=== PATIENT | female | born 1985 | race Caucasian/White ===

== ENCOUNTER 2017-07-16 22:06 | Emergency (ER) | payer OTHER ==
[2017-07-16 22:25] VITALS: BP 107/61; PULSE 92; RESP 18; TEMP 97.8; O2SAT 100
[2017-07-16] MEDS ORDERED: Morphine 4 MG/ML VIAL IVP STA (22:44)
[2017-07-16] MEDS ORDERED: Lactated Ringer's 1,000 ML IV STA (22:44)
[2017-07-16] MEDS ORDERED: Morphine 4 MG/ML VIAL ONE (22:57)
--- NOTE | 2017-07-16 23:52 | ED PDOC ---
HPI: Abdomen Time Seen by Provider: 07/16/17 22:32 Chief Complaint (Nursing): Abdominal Pain Chief Complaint (Provider): Pelvic Pain History Per: Patient History/Exam Limitations: no limitations Onset/Duration Of Symptoms: Hrs (x1) Current Symptoms Are (Timing): Still Present Additional Complaint(s): 32 y/o female with a pmhx of hypothyroidism, who presents to the ED complaining of severe pelvic pain x1 hour. Patient reports having a D&C 3 weeks ago for demise at 8 weeks. Patient says she had 2 weeks of bleeding following the procedure that ended with a bit of spotting. Reports mild LLQ pain x2 days that has since resolved. States that 1 hour prior to arrival at the ED she developed sharp severe midline pelvic pain. Denies discharge, bleeding, or urinary problems. Also denies diarrhea, constipation, or taking any medication for pain. Patient is with 3 terminations due to demise. All terminations were within the last 14 months. Reports she did not have this pain following her previous 2 D&Cs, nor did she have as much bleeding. Also reports previous 2 D&Cs were performed in [facility], but her most recent D&C was performed in [place] by Dr. Escoto. PMD: Dr. Escoto in [place] Past Medical History Reviewed: Historical Data, Nursing Documentation, Vital Signs Vital Signs: Last Vital Signs Temp 97.8 F 07/16/17 22:20 Pulse 92 H 07/16/17 22:20 Resp 18 07/16/17 22:20 BP 107/61 07/16/17 22:20 Pulse Ox 100 07/16/17 23:58 - Medical History PMH: Hypothyroidism - Surgical History Surgical History: Cholecystectomy, Hernia Repair (as child) Other surgeries: D&C x3 - Family History Family History: States: Unknown Family Hx - Social History Current smoker - smoking cessation education provided: No Alcohol: None Drugs: Denies - Allergies Allergies/Adverse Reactions: Allergies Allergy/AdvReac Type Severity Reaction Status Date / Time No Known Allergies Allergy Verified 07/16/17 22:19 Review of Systems Gastrointestinal: Positive for: Abdominal Pain (resolved). Negative for: Diarrhea, Constipation Genitourinary Female: Positive for: Vaginal Bleeding (resolved), Pelvic Pain. Negative for: Dysuria, Frequency, Incontinence, Hematuria, Vaginal Discharge Physical Exam - Reviewed Nursing Documentation Reviewed: Yes Vital Signs Reviewed: Yes - Physical Exam Gastrointestinal/Abdominal: Positive for: Tenderness (midline superpubic tenderness to palpation) - Laboratory Results Result Diagrams: 07/16/17 23:37 - ECG O2 Sat by Pulse Oximetry: 100 (RA) Pulse Ox Interpretation: Normal Medical Decision Making Medical Decision Making: Time: 23:37 Initial Impression: Pelvic pain s/p D&C. Differential diagnoses include, but are not limited to retained products of conception, endometritis, UTI or cystitis Initial Plan: --Beta-HCG --CMP --ED urine --ED urine dipstick --CBC --PTT/PT --Lactated Ringer's 1,000 mls/hr --Morphine 4mg IVP --IV Insertion --US Transvaginal --Reevaluation Time: 00:06 EXAM: US Pelvis, Transvaginal CLINICAL HISTORY: 32 years old, female; Pain; Pelvic pain; Prior surgery; Surgery date: <1 month; Surgery type: S/P d & c x 3 wks; Additional info: Pelvic pain post d c 3 weeks R/O retianed pocs TECHNIQUE: Real-time transvaginal pelvic ultrasound (complete) with image documentation. Transvaginal imaging was used for better evaluation of the endometrium and adnexa. COMPARISON: No relevant prior studies available. FINDINGS: Uterus/cervix: Uterus measures 7.4 x 4.1 x 5.6 cm in size. No myometrial mass. Endometrium: 1.3 cm in thickness, heterogeneous without significant vascularity. Right ovary: 2.2 x 1.4 x 2.1 cm in size. No mass. Normal flow. Left ovary: 3.4 x 2.0 x 2.9 cm in size. 1.5 x 0.8 x 1.3 cm anechoic lesion. Normal flow. Free fluid: Small free fluid within pelvis. Bladder: Empty bladder which cannot be evaluated with this probe. IMPRESSION: 1. Mildly thickened, heterogeneous endometrium. RPOC not entirely excluded. 2. LEFT ovarian cyst. Time: 12:20 Patient declined pain medication. States she is now pain free. Case discussed with Dr. Reina, [employer] clinical applications manager and patient is stable for discharge. Findings, plan of care, and discharge discussed with patient. Return precautions provided. Scribe Attestation: Documented by Carlos Parry, acting as a scribe for Maye Schrader MD. Provider Scribe Attestation: All medical record entries made by the Scribe were at my direction and personally dictated by me. I have reviewed the chart and agree that the record accurately reflects my personal performance of the history, physical exam, medical decision making, and the department course for this patient. I have also personally directed, reviewed, and agree with the discharge instructions and disposition. Disposition - Clinical Impression Clinical Impression: Pelvic pain - Patient ED Disposition Is Patient to be Admitted: No Counseled Patient/Family Regarding: Studies Performed, Diagnosis, Need For Followup - Disposition Disposition: Routine/Home Disposition Time: 00:20 Condition: IMPROVED Additional Instructions: PLEASE FOLLOW UP WITH DR ESCOTO IN 24-48 HOURS FOR REEVALUATION Instructions: Acute Pelvic Pain Forms: [employer] ([place]ux[place]ish)
[2017-07-17 00:06] LABS: BASO # 0.1 K/uL (0.0-0.2); BASO % 0.7 % (0.0-2.0); EOS # 0.1 K/uL (0.0-0.7); EOS % 1.6 % (0.0-4.0); HEMOGLOBIN 13.1 g/dL (12.0-16.0); LYMPH # 1.5 K/uL (1.0-4.3); LYMPH % 18.3 % (20.0-40.0); MEAN CELL VOLUME 88.6 fl (81.0-99.0); MEAN CORPUSCULAR HEMOGLOBIN 30.3 pg (27.0-31.0); MEAN CORPUSCULAR HGB CONC 34.2 g/dL (33.0-37.0); MEAN PLATELET VOLUME 8.2 fl (7.2-11.7); MONO # 0.7 K/uL (0.0-0.8); MONO % 8.9 % (0.0-10.0); NEUT # 5.8 K/uL (1.8-7.0); NEUT % 70.5 % (50.0-75.0); RBC 4.33 Mil/uL (3.80-5.20); RED CELL DISTRIBUTION WIDTH 12.7 % (11.5-14.5); WHITE BLOOD COUNT 8.2 K/uL (4.8-10.8)
--- NOTE | 2017-07-17 00:06 | US ---
EXAM: US Pelvis, Transvaginal CLINICAL HISTORY: 32 years old, female; Pain; Pelvic pain; Prior surgery; Surgery date: <1 month; Surgery type: S/P d & c x 3 wks; Additional info: Pelvic pain post d c 3 weeks R/O retianed pocs TECHNIQUE: Real-time transvaginal pelvic ultrasound (complete) with image documentation. Transvaginal imaging was used for better evaluation of the endometrium and adnexa. COMPARISON: No relevant prior studies available. FINDINGS: Uterus/cervix: Uterus measures 7.4 x 4.1 x 5.6 cm in size. No myometrial mass. Endometrium: 1.3 cm in thickness, heterogeneous without significant vascularity. Right ovary: 2.2 x 1.4 x 2.1 cm in size. No mass. Normal flow. Left ovary: 3.4 x 2.0 x 2.9 cm in size. 1.5 x 0.8 x 1.3 cm anechoic lesion. Normal flow. Free fluid: Small free fluid within pelvis. Bladder: Empty bladder which cannot be evaluated with this probe. IMPRESSION: 1. Mildly thickened, heterogeneous endometrium. RPOC not entirely excluded. 2. LEFT ovarian cyst.
[2017-07-17 00:17] LABS: INR 0.9 (0.9-1.2); PARTIAL THROMBOPLASTIN TIME 28.7 Seconds (25.6-37.1); PROTHROMBIN TIME 10.1 Seconds (9.8-13.1)
[2017-07-17 01:02] LABS: ALB/GLOB RATIO 1.2 (1.0-2.1); ALBUMIN 4.6 g/dL (3.5-5.0); ALT/SGPT 96 U/L (9-52); AST/SGOT 55 U/L (14-36); BLOOD UREA NITROGEN 18 mg/dl (7-17); CALCIUM 9.5 mg/dL (8.4-10.2); GFR AFRICAN-AMERICAN > 60; GFR NON-AFRICAN AMERICAN > 60
== END 2017-07-17 03:18 | disposition home or self-care (01) ==
LOC: H.ER 22:06
DX: N83.202 Unspecified ovarian cyst, left side (principal); E03.9 Hypothyroidism, unspecified
CPT/HCPCS: 76830; 80053; 81025; 84702; 85025; 85610; 85730; 99283; J7120